=== PATIENT | male | born 1955 | race American Indian/Alaskan Native ===

== ENCOUNTER 2024-07-27 04:47 | Inpatient (IN) | payer MEDICARE, OTHER ==
[2024-07-27] MEDS: Ondansetron 4 MG/2 ML SDV IVPUSH ONE (04:53)
[2024-07-27] MEDS ORDERED: Sodium Chloride 0.9% 10 ML Syringe FLUSH PRN (04:53)
[2024-07-27 05:29] LABS: BASOPHILS PERCENT AUTO 0.4 % (0.0-1.0); HEMATOCRIT 43.5 % (42.0-52.0); IMMATURE GRAN ABSOLUTE AUTO 0.04 K/mm3 (0.00-0.05); IMMATURE GRAN PERCENT AUTO 0.4 % (0.0-0.4); LYMPHOCYTES ABSOLUTE AUTO 1.1 K/mm3 (1.0-4.8); MEAN CORPUSCULAR HEMOGLOBIN 30.4 pg (28.0-32.0); MEAN CORPUSCULAR HGB CONC 34.5 g/dl (32.0-36.0); MEAN CORPUSCULAR VOLUME 88.2 fl (83.0-99.0); MEAN PLATELET VOLUME 9.7 fl (9.4-12.4); MONOCYTES ABSOLUTE AUTO 0.3 K/mm3 (0.0-0.8); MONOCYTES PERCENT AUTO 2.8 % (0.0-8.0); NEUTROPHILS ABSOLUTE AUTO 8.8 K/mm3 (1.8-7.7); NEUTROPHILS PERCENT AUTO 85.4 % (41.0-71.0); PLATELET COUNT,PLT 236 K/mm3 (150-400); RED BLOOD CELL COUNT 4.93 M/mm3 (4.52-5.90); WHITE BLOOD CELL COUNT,WBC 10.26 K/mm3 (3.9-11.3)
[2024-07-27 05:34] LABS: A/G RATIO 0.9 (1-2); ALANINE AMINOTRANSFERASE,ALT 15 U/L (16-63); ALBUMIN 3.8 g/dl (3.4-5.0); ALKALINE PHOSPHATASE 100 U/L (46-116); ASPARTATE AMNIOTRANSFERASE,AST 16 U/L (15-37); BILIRUBIN TOTAL 1.1 mg/dL (0.2-1.0); BLOOD UREA NITROGEN,BUN 14 mg/dL (7-18); BUN/CREATININE RATIO 12.7 (14-18); CALCIUM 8.5 mg/dL (8.5-10.1); CARBON DIOXIDE,CO2 27 mEq/L (21-32); CREATINE KINASE,CK 135 U/L (39-308); CREATININE 1.1 mg/dL (0.7-1.3); ESTIMATED GFR 73 mL/min (>60); GLUCOSE RANDOM 206 mg/dL (70-99); MAGNESIUM 1.6 mg/dL (1.8-2.4); PROTEIN TOTAL,TP 8.1 g/dl (6.4-8.2); TROPONIN I HIGH SENSITIVITY 7 pg/mL (<=76)
[2024-07-27] MEDS: Lactated Ringers 500 ML IV ONE (05:43)
[2024-07-27] MEDS: Ondansetron 4 MG/2 ML SDV ONE (05:49)
[2024-07-27] MEDS: Sodium Chloride 0.9% 100 ML IV SCH (05:53)
[2024-07-27] MEDS: Iopamidol 755 Mg/ML 100 ML Bottle IVPUSH ONE (05:54)
[2024-07-27 06:01] LABS: ANION GAP 15.5 (5-15); CHLORIDE,CL 96 mEq/L (98-107); POTASSIUM,K 3.5 mEq/L (3.5-5.1); SODIUM,NA 135 mEq/L (136-145)
[2024-07-27 06:03] LABS: INR 1.03; PROTHROMBIN TIME 10.9 SECONDS (9.7-12.0)
[2024-07-27 06:05] LABS: PTT,PARTIAL THROMBOPLSTIN TIME 25.4 SECONDS (21.7-31.4)
[2024-07-27 06:48] LABS: APPEARANCE,URINE CLEAR (Clear); BILIRUBIN,URINE NEGATIVE (Negative); COLOR,URINE YELLOW (Yellow); GLUCOSE,URINE 1+ (Negative); KETONES,URINE NEGATIVE (Negative); LEUKOCYTE ESTERASE,URINE NEGATIVE (Negative); NITRITE,URINE NEGATIVE (Negative); OCCULT BLOOD,URINE NEGATIVE (Negative); PH,URINE 7.5 (5.0-8.0); PROTEIN,URINE NEGATIVE (Negative); UROBILINOGEN,URINE 0.2 (0.2-1.0)
[2024-07-27] MEDS: Aspirin 81 MG Tab.Chew PO ONE (07:14)
[2024-07-27] MEDS: atorvaSTATin 40 MG Tab PO ONE (07:14)
[2024-07-27] MEDS ORDERED: hydrALAZINE 20 MG/ML SDV IVPUSH PRN (09:00)
[2024-07-27] MEDS ORDERED: 50% Dextrose in Water 50 ML Syringe IVPUSH PRN (09:00)
[2024-07-27] MEDS ORDERED: Labetalol 100 MG/20 ML MDV IVPUSH PRN (09:00)
[2024-07-27] MEDS ORDERED: Acetaminophen 325 MG Tab PO PRN (09:43)
[2024-07-27] MEDS ORDERED: oxyCODONE 5 MG Tab PO PRN (09:43)
[2024-07-27] MEDS: Magnesium Sulf/Wat 4 GM/50 mL 4 GM in Premix Bag 1 BAG IV ONE (10:16)
[2024-07-27] MEDS: Dextrose 5%-0.45% NaCl 1,000 ML IV SCH (10:16)
[2024-07-27] MEDS: Enoxaparin 40 MG/0.4 ML Syringe SUBCUT SCH (10:27)
[2024-07-27] MEDS: Insulin Lispro 100 Unit/ML 3 ML KwikPen SUBCUT SCH (12:50)
[2024-07-27] MEDS: Ondansetron 4 MG/2 ML SDV IV PRN (14:42)
[2024-07-27] MEDS: Carbidopa/Levodopa 25-100 MG Tab PO SCH (16:19)
[2024-07-27] MEDS: Aspirin 81 MG Tab.Chew PO SCH (20:38)
[2024-07-27] MEDS: Amantadine 100 MG Cap PO SCH (20:38)
[2024-07-27] MEDS: Famotidine 20 MG/2 ML SDV IVPUSH SCH (20:38)
[2024-07-27] MEDS: atorvaSTATin 40 MG Tab PO SCH (20:38)
[2024-07-28 05:45] LABS: BASOPHILS ABSOLUTE AUTO 0.1 K/mm3 (0.0-0.2); BASOPHILS PERCENT AUTO 0.6 % (0.0-1.0); EOSINOPHILS ABSOLUTE AUTO 0.1 K/mm3 (0.0-0.4); EOSINOPHILS PERCENT AUTO 0.7 % (0.0-6.0); HEMATOCRIT 41.1 % (42.0-52.0); HEMOGLOBIN 14.1 gm/dl (14.0-18.0); IMMATURE GRAN ABSOLUTE AUTO 0.03 K/mm3 (0.00-0.05); IMMATURE GRAN PERCENT AUTO 0.3 % (0.0-0.4); LYMPHOCYTES ABSOLUTE AUTO 1.7 K/mm3 (1.0-4.8); LYMPHOCYTES PERCENT AUTO 19.7 % (24.0-44.0); MEAN CORPUSCULAR HEMOGLOBIN 29.9 pg (28.0-32.0); MEAN CORPUSCULAR HGB CONC 34.3 g/dl (32.0-36.0); MEAN CORPUSCULAR VOLUME 87.1 fl (83.0-99.0); MEAN PLATELET VOLUME 9.9 fl (9.4-12.4); MONOCYTES ABSOLUTE AUTO 0.9 K/mm3 (0.0-0.8); MONOCYTES PERCENT AUTO 9.7 % (0.0-8.0); NEUTROPHILS ABSOLUTE AUTO 6.1 K/mm3 (1.8-7.7); PLATELET COUNT,PLT 240 K/mm3 (150-400); RED BLOOD CELL COUNT 4.72 M/mm3 (4.52-5.90); WHITE BLOOD CELL COUNT,WBC 8.79 K/mm3 (3.9-11.3)
[2024-07-28 06:26] LABS: A/G RATIO 0.8 (1-2); ALBUMIN 3.2 g/dl (3.4-5.0); ANION GAP 9.4 (5-15); BILIRUBIN TOTAL 1.3 mg/dL (0.2-1.0); BUN/CREATININE RATIO 15.6 (14-18); CALCIUM 8.5 mg/dL (8.5-10.1); CREATININE 0.9 mg/dL (0.7-1.3); EST CRCL DRUG DOSING (CG) 83.67 mL/min; MAGNESIUM 2.3 mg/dL (1.8-2.4); PHOSPHORUS 2.6 mg/dL (2.6-4.7); POTASSIUM,K 3.4 mEq/L (3.5-5.1); PROTEIN TOTAL,TP 7.1 g/dl (6.4-8.2); TSH 0.464 uIU/mL (0.358-3.74)
[2024-07-28 07:41] LABS: HEMOGLOBIN A1C 6.3 %
[2024-07-28 08:04] LABS: VITAMIN D,25-HYDROXY 21.1 ng/ml (30.0-100.0)
[2024-07-28] MEDS: Cholecalciferol (Vitamin D3) 5,000 UNIT Cap PO SCH (14:32)
[2024-07-28] MEDS: Phosphorus #1 250 MG Tab PO ONE (14:32)
[2024-07-28] MEDS: Potassium Chloride 20 MEQ Tab.ER PO ONE (14:32)
[2024-07-29] MEDS: Melatonin 3 MG Tab PO PRN (00:01)
[2024-07-29 06:18] LABS: ANION GAP 9.4 (5-15); BUN/CREATININE RATIO 21.1 (14-18); CALCIUM 8.5 mg/dL (8.5-10.1); CREATININE 0.9 mg/dL (0.7-1.3); EST CRCL DRUG DOSING (CG) 83.67 mL/min; PHOSPHORUS 3.2 mg/dL (2.6-4.7); POTASSIUM,K 4.4 mEq/L (3.5-5.1)
[2024-07-29] MEDS: Sennosides/Docusate Sodium 50-8.6 MG Tab PO PRN (07:42)
[2024-07-29] MEDS: Gadobenate Dimeglumine 529 MG/ML 15 ML SDV IVPUSH ONE (11:50)
[2024-07-29] MEDS: Sodium Chloride 0.9% 10 ML Syringe FLUSH SCH (11:51)
== END 2024-07-30 15:42 | disposition home or self-care (01) | DRG 68 ==
LOC: JD.ED 04:47 → JD.MS 07:03 → MERGE 07:03
PROVIDERS: ADMIT Student in an Organized Health Care Education/Training Program; ATTEND Student in an Organized Health Care Education/Training Program
DX: I65.02 Occlusion and stenosis of left vertebral artery (principal); R29.810 Facial weakness; Z79.82 Long term (current) use of aspirin; E85.4 Organ-limited amyloidosis; R47.01 Aphasia; I68.0 Cerebral amyloid angiopathy; I66.8 Occlusion and stenosis of other cerebral arteries; D32.9 Benign neoplasm of meninges, unspecified; G20.A1 Parkinson's disease without dyskinesia, without mention of fluctuations; E11.9 Type 2 diabetes mellitus without complications; R13.10 Dysphagia, unspecified; I10 Essential (primary) hypertension; I44.1 Atrioventricular block, second degree; E55.9 Vitamin D deficiency, unspecified; Z72.0 Tobacco use; Z79.899 Other long term (current) drug therapy
CPT/HCPCS: 36415; 70450; 70496; 70498; 80053; 81003; 82550; 83735; 84484; 85025; 85610; 85730; 93005; 96361; 96374; 99285; J2405; J7120; Q9967; 70553; 70553-26; 71045; 71045-26; 80048; 80061; 82306; 82947; 83036; 84100; 84443; 92610-GN; 93010; 93306; 94761; 97116-GP; 97162-GP; 97165-GO; 97535-GO; 99223; 99232; 99233; 99239; A9270-GY; A9577; J1650; J3475; J7799